=== PATIENT | female | born 1955 | race Caucasian/White ===

== ENCOUNTER 2017-07-11 12:36 | Emergency (ER) | payer OTHER ==
[~2017-07-11] VITALS: Ht 160 cm; Wt 61.2 kg
[2017-07-11] MEDS ORDERED: NORCO 5-325 TA1 EACH PO (14:08)
[2017-07-11] MEDS ORDERED: NAPROSYN500 MG PO (14:08)
== END 2017-07-11 14:38 | disposition home or self-care (01) ==
LOC: ED
DX: S62.366A Nondisplaced fracture of neck of fifth metacarpal bone, right hand, initial encounter for closed fracture (principal); R03.0 Elevated blood-pressure reading, without diagnosis of hypertension; F17.200 Nicotine dependence, unspecified, uncomplicated; W22.8XXA Striking against or struck by other objects, initial encounter; Y93.89 Activity, other specified; Y92.9 Unspecified place or not applicable; Y99.9 Unspecified external cause status

== ENCOUNTER 2024-09-23 15:18 | Emergency (ER) | payer OTHER ==
[~2024-09-23] VITALS: Ht 160 cm; Wt 54.4 kg
[~2024-09-23 15:18] MED LIST: NAPROSYN500 MG PO; NORCO 5-325 TA1 EACH PO
[2024-09-23] MEDS ORDERED: ASPIRIN81 M1 PO (15:49)
[2024-09-23] MEDS ORDERED: IBUPROFEN 600 MG TAB PO ONE (16:40)
[2024-09-23 18:40] LABS: BILIRUBIN Negative (Negative); BLOOD Negative (Negative); CLARITY Cloudy (Clear); COLOR Yellow (Yellow); GLUCOSE Negative (Negative); KETONE Negative (Negative); LEUKO ESTERASE Trace (Negative); NITRITE Negative (Negative); UROBILINOGEN 0.2 E.U./dl (0.0-1.0)
[2024-09-23 18:46] LABS: BACTERIA 1+; EPITHELIAL CELLS 21-30; MUCOUS 1+; RBC 0-2 rbc/hpf (0-2)
[2024-09-23] MEDS ORDERED: Ciprofloxacin Hydrochloride 500 MG TAB PO ONE (19:20)
[2024-09-23] MEDS ORDERED: CIPRO500 MG PO (19:24)
== END 2024-09-23 19:25 | disposition home or self-care (01) ==
LOC: ED 15:18
PROVIDERS: Nurse Practitioner
DX: N39.0 Urinary tract infection, site not specified (principal); N81.4 Uterovaginal prolapse, unspecified; F17.210 Nicotine dependence, cigarettes, uncomplicated; Z90.710 Acquired absence of both cervix and uterus; Z79.82 Long term (current) use of aspirin